=== PATIENT | male | born 1960 | race Caucasian/White ===

== ENCOUNTER → 2025-01-22 | Day surgery (SDC) | payer BC, MEDICARE ==
[~2025-01-22] MED LIST: PROPOFOL 10 MG/ML 20 ML VIAL IV ONE
[2025-01-22 09:38] VITALS: RESP 16; TEMP 97.3
[2025-01-22] MEDS: IV FLUID CONTINUATION 1,000 ML IV ONE (09:38)
[2025-01-22] MEDS: LACTATED RINGERS 1,000 ML IV SCH (09:44)
--- NOTE | 2025-01-22 10:40 | P.PCN ---
Date of Procedure: 01/22/25 Procedure(s) Performed: BRIEF HISTORY: Patient is a 64-year-old pleasant pleasant white male scheduled for an elective colonoscopy as a part of screening for colon cancer/positive Cologuard PROCEDURE PERFORMED: Colonoscopy with snare polypectomy. PREOPERATIVE DIAGNOSIS: Screening for colon cancer/positive Cologuard. IV sedation per Anesthesia. PROCEDURE: After informed consent was obtained, the patient, was brought into the endoscopy unit. IV sedation was administered by Anesthesia under continuous monitoring. Digital rectal examination was normal. Initially the Olympus CF-160 flexible video colonoscope was then inserted in the rectum, gradually advanced into the cecum without any difficulty. Careful examination was performed as the scope was gradually being withdrawn. Ileocecal valve and the appendiceal orifice were visualized and appeared normal. Prep was excellent. Mucosa of the cecum, normal. Descending colon there was a 1 cm broad-based polyp removed by hot snare polypectomy. Rest of the ascending colon, transverse colon, descending colon, sigmoid colon, and rectum appeared normal. The proximal rectum there is a 5 mm polyp that was removed by cold snare polypectomy. Scattered sigmoid diverticulosis. Retroflexion was performed in the rectum and no lesions were seen. The patient tolerated the procedure well. IMPRESSION: 1 cm broad-based ascending colon polyp status post snare polypectomy 5 mm proximal rectal polyp status post polypectomy Scattered sigmoid diverticulosis RECOMMENDATIONS: Findings of this examination were discussed with the patient as well as his family. He was advised to follow-up with the biopsy results. If the biopsy reveals adenoma he can have repeat colonoscopy in 3 years..
[2025-01-22 10:53] VITALS: BP 119/82; PULSE 60
== END ==
LOC: ORWHC2ENDO 09:09
PROVIDERS: ATTEND Internal Medicine Gastroenterology
DX: Z12.11 Encounter for screening for malignant neoplasm of colon (principal); D12.2 Benign neoplasm of ascending colon; K62.1 Rectal polyp; K57.30 Diverticulosis of large intestine without perforation or abscess without bleeding; Z89.521 Acquired absence of right knee; Z89.232 Acquired absence of left shoulder
CPT/HCPCS: 88305; 45385; J2704